=== PATIENT | male | born 1990 | race Caucasian/White ===

== ENCOUNTER 2025-04-01 08:50 | Inpatient (IN) | payer MEDICAID ==
[~2025-04-01] VITALS: Ht 172.7 cm; Wt 64.2 kg
--- NOTE | 2025-04-01 09:46 | ELECTROCARDIOGRAPH REPORT ---
[facility] Test Date: 2025-04-01 Test Time: 09:44:18 Pat Name: JORGE A DELACRUZ Department: [facility]- Patient ID: [facility]-[id number] Room: Gender: M Ehs Specialist: : 1990 Requested By: SHARA NAVA Order Number: [id number] Reading MD: Measurements Intervals [place] Rate: 114 P: 72 MD: 128 QRS: 80 QRSD: 75 T: -9 QT: 321 QTc: 443 Interpretive Statements Sinus tachycardia Borderline T wave abnormalities Please click the below link to view image of tracing.
--- NOTE | 2025-04-01 09:48 | Physician Documentation ---
History of Present Illness ~ Chief Complaint: ETOH Withdrawl Stated Complaint: ALCOHOL WITHDRAWAL Time Seen by MD: 09:19 OK to notify your PCP?: Yes Source: patient Mode of Arrival: POV Exam Limitations: no limitations HPI 34-year-old male with chief complaint nausea, vomiting and shakiness which he states are all due to alcohol withdrawal which started yesterday. His last drink of alcohol was yesterday in the middle of the day. He states he had been drinking heavily for the past eight days since the 24 of March. He does have a history of alcoholism but had been sober for quite some time prior to this. He does have a history of alcohol withdrawal seizures. He denies headache, abdominal pain, diarrhea, blood in vomit, hallucinations, delirium. Medication Reconciliation Allergies: Coded Allergies: No Known Allergies (Unverified , 04/01/25) Past Medical History Past Medical History: No Pertinent History Review of Systems All Other Systems at this time: Reviewed and Negative Physical Exam Vital Signs: RN Vital Signs have been reviewed: Yes, Temperature: 98.5, Source: Oral, Heart Rate: 121, Respiratory Rate: 18, BP: 147/105, Pulse Oximetry: 97, Weight: 63.000 Oxygen Flow Rate: 0 Physical Exam GENERAL: Alert, MILD DISTRESS HOLDING EMESIS BAG. TREMULOUS. HEENT: NCAT, EOMI, PERRL, normal oropharynx, DRY oral mucosa. NECK: Supple, trachea midline. CARDIAC: Regular rhythm, ELEVATED RATE, no murmurs, rubs, or gallops. PV: Equal distal pulses. No lower extremity edema, cap refill less than 2 seconds. RESPIRATORY: Equal breath sounds, clear to auscultation bilaterally, no respiratory distress. GASTROINTESTINAL: Non distended, soft, nontender, No guarding or rebound. MUSCULOSKELETAL: Normal range of motion, nontender, no swelling. NEUROLOGICAL: Awake, alert, and oriented x 3. SKIN: Warm/dry, no pallor, no rash. PSYCH: Alert and appropriate. APPEARS ANXIOUS. Progress Progress Note CIWA SCORE INITIALLY: 15 (10:00) CIWA SCORE: 11 (11:00) CIWA SCORE REASSESSED: 15 (1207) Results/Orders Reviewed/noted all lab results: Yes Results/Orders Orders - SHARA NAVA Hospitalist (04/01/25 12:05) Completed Orders - SHARA NAVA Stat Ekg (04/01/25 09:19) Normal Saline 1000ml (0.9% Sodium Chlori (04/01/25 09:20) Ondansetron Inj. (Zofran 4mg/2ml Vial) (04/01/25 09:20) Lorazepam Inj (Ativan Inj) (04/01/25 09:20) Diazepam Inj (Valium Inj) (04/01/25 10:05) Cbc/Diff (04/01/25 10:13) CMP (04/01/25 10:42) Lipase (04/01/25 10:42) Medications Received in ER Medications (Trade) Dose Ordered Sig/Emil Route PRN Reason Start Time Stop Time Status Last Admin Dose Admin (0.9% sodium chloride (NS) 1000ml IV soln) 1,000 ml ONCE ONCE IVB 04/01/25 09:20 04/01/25 09:21 DC 04/01/25 10:18 1,000 ML (Zofran 4mg/2ml vial) 8 mg ONCE ONCE IV 04/01/25 09:20 04/01/25 09:21 DC 04/01/25 10:17 8 MG (Valium inj) 5 mg ONCE ONCE IV 04/01/25 10:05 04/01/25 10:09 DC 04/01/25 10:22 5 MG Vital Signs 04/01/25 04/01/25 04/01/25 09:04 09:20 10:16 Temp 98.5 98.5 Pulse 121 102 Resp 18 18 13 B/P (MAP) 147/105 134/108 (117) Pulse Ox 97 98 O2 Flow Rate 0 0 Laboratory Tests Test 04/01/25 09:45 04/01/25 10:15 04/01/25 10:49 CBC Comment Chemistry Comments White Blood Count 8.1 Red Blood Count 4.49 L Hemoglobin 14.1 Hematocrit 41.8 L Mean Corpuscular Volume 93.1 Mean Corpuscular Hemoglobin 31.4 H Mean Corpuscular Hemoglobin Concent 33.7 Red Cell Distribution Width 16.2 H Platelet Count 335 Mean Platelet Volume 8.4 Neutrophils (%) (Auto) 83.9 H Lymphocytes (%) (Auto) 10.6 L Monocytes (%) (Auto) 4.8 Eosinophils (%) (Auto) 0 Basophils (%) (Auto) 0.7 Neutrophils # (Auto) 6.8 Lymphocytes # (Auto) 0.9 L Monocytes # (Auto) 0.4 Eosinophils # (Auto) 0.0 Basophils # (Auto) 0.1 Sodium Level 140 Potassium Level 3.7 Chloride Level 100 Carbon Dioxide Level 27.2 Anion Gap 13 Blood Urea Nitrogen 6 L Creatinine 0.92 Estimated GFR/1.73 m2 > 90 BUN/Creatinine Ratio 6.5 L Glucose Level 158 H Calcium Level 7.8 L Total Bilirubin 0.8 Aspartate Amino Transf (AST/SGOT) 210 H Alanine Aminotransferase (ALT/SGPT) 112 H Alkaline Phosphatase 89 Total Protein 7.9 Albumin 3.3 L Globulin 4.6 H Albumin/Globulin Ratio 0.7 L Lipase 20 Medical Decision Making Differential Dx:Considerations: Include: Alcohol withdrawl synd., Delerium tremens, Hallucinosis, Seizures, Anticholinergic poisoning, CVA, Dehydration, Depression, Drug induced psychosis, Electolyte imbalance, Encephalitis, Encephalopathy, Hepatitis, Hyperthermia, Intoxication-alcohol, Intoxication- other drug, Medical noncompliance, Personality disorder, Schizophrenia, Seizure disorder, Substance abuse disorder, Seizure disorder, Thiamine deficiency, Thyrotoxicosis, Other Additional Comment DUE TO ELEVATED CIWA SCORE RECOMMENDATION IS ADMISSION Departure Time of Disposition: 12:07 Admitted to Inpatient Unit: to hospitalist Impression: Primary Impression: Alcohol withdrawal syndrome Qualified Codes: F10.930 - Alcohol use, unspecified with withdrawal, uncomplicated Condition: Fair Referrals: NO PRIMARY CARE PROVIDER (PCP) Education Educated: Patient Educated regarding: diagnosis, treatment, need for follow up Signature Scribe Signature: X Attestation: SHARA CARLSON Apr 01, 2025 09:48
[2025-04-01] MEDS: ondansetron/PF 4mg/2ml inj IV ONE (10:17)
[2025-04-01] MEDS: normal saline 1000ML IV soln IVB ONE (10:18)
[2025-04-01] MEDS: diazepam inj 5 MG/ML inj. IV ONE ×3 (10:22→14:47)
[2025-04-01 10:36] LABS: MEAN PLATELET VOLUME 8.4 FL (7.4-10.4); RED CELL DISTRIBUTION WIDTH 16.2 % (11.5-14.5)
[2025-04-01 11:09] LABS: CREATININE 0.92 MG/DL (0.60-1.10); TOTAL CARBON DIOXIDE 27.2 MMOL/L (24-32); eCRCL 101 ML/MIN; eGFR > 90 ML/MIN
[2025-04-01 13:01] LABS: URINE AMPHETAMINE SCREEN NEGATIVE (Neg); URINE BARBITUATE SCREEN NEGATIVE (Neg); URINE BENZODIAZEPINES SCREEN NEGATIVE (Neg); URINE CANNABINOID SCREEN NEGATIVE (Neg); URINE COCAINE SCREEN NEGATIVE (Neg); URINE METHADONE SCREEN NEGATIVE (Neg); URINE OPIATE SCREEN NEGATIVE (Neg); URINE PHENCYCLIDINE SCREEN NEGATIVE (Neg)
[2025-04-01] MEDS ORDERED: NO HOME MEDS (13:39)
[2025-04-01 14:00] VITALS: BP 145/111; PULSE 102; RESP 18; TEMP 98.4; O2SAT 98
[2025-04-01] MEDS: metoclopramide 5 mg/ml inj IV ONE (14:22)
[2025-04-01] MEDS: normal saline 1000ml 1,000 ML IV SCH (14:30)
[2025-04-01] MEDS ORDERED: magnesium sulf-water 4G/100mL 100 ML IV PRN (14:30)
[2025-04-01] MEDS ORDERED: magnesium sulf-water 2g/50mL 50 ML IV PRN (14:30)
[2025-04-01] MEDS ORDERED: magnesium Cl slow-release 64mg tablet PO PRN (14:30)
[2025-04-01] MEDS ORDERED: potassium Cl 20 mEq SR tablet PO PRN (14:30)
--- NOTE | 2025-04-01 14:31 | HISTORY AND PHYSICAL-Residence ---
History & Physical Providers to CC Resident Creating Document: RHONDA MCKNIGHT RES ~ History of Present Illness Primary Medical Doctor: NONE Reason for Admit\\Complaint: ETHO withdrawal History of Present Illness The patient is a 34-year-old young male with a history of heavy alcohol use disorder, alcohol-induced pancreatitis, and prior alcohol withdrawal seizures. He presents with symptom of acute alcohol withdrawal, including nausea, vomiting, tremors, and generalized shakiness that began yesterday. He reports that his last alcoholic drink was yesterday around mid day (3 bottle of jacky). He had been drinking heavily on a daily basis for the past eight days, relapsing on March 24 after a period of sobriety. He consumes "a few" bottles of wine and "quite a bit" of Vodka on daily basis. He denies experiencing any seizures or hallucination during this current episode. Patient is not on any home medication and has not recently sought medical or rehab treatment for his alcohol use. 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 Consumes heavy alcohol for the past eight days. Denies recreational drugs or smoking. ROS All Other Systems: Reviewed and Negative ROS As stated above in the HPI, otherwise all systems are reviewed and negative. Exam Vitals: Vital Signs Date Time Temp Pulse Resp B/P (MAP) Pulse Ox O2 Delivery O2 Flow Rate FiO2 04/01/25 12:41 98.5 95 12 143/97 (112) 97 0 General: Awake and Alert, anxious and agitated HEENT: Conjunctiva pink, Sclera clear, Mucus Membranes moist. Neck: Supple without masses and tenderness. Resp: Unlabored. Lungs clear to auscultation bilaterally. Heart: Regular Rate and rhythm, normal S1 and S2 without murmur, rub or gallop. Abdomen: Soft and non tender no organomegaly Extremities: Bilateral hand tremors Skin: Warm and Dry. Diagnostic Data Last Recorded Lab Results: 04/01/25 1015 04/01/25 1049 Advance Care Planning Advanced Care plannin - 30 Minutes Additional Plan Assessment and plan The patient is a 34-year-old young male with a history of heavy alcohol use disorder, alcohol induced pancreatitis, and prior alcohol withdrawal seizures. He presents with symptom of acute alcohol withdrawal, including nausea, vomiting, tremors, and generalized shakiness that began yesterday. He reports that his last alcoholic drink was yesterday around mid day. He had been drinking heavily on a daily basis for the past eight days, relapsing on March 24 after a period of sobriety. Severe BALAJI (Alcohol Withdrawal Symptoms) History of alcohol-induced pancreatitis, and alcohol induced seizure Autonomic symptoms (e.g., palpitations, sweating, tachycardia, elevated blood pressure) Anxiety, agitation, restlessness, Tremor, hyperreflexia, Anorexia, nausea, vomiting CIWA-Ar Score: 27 Admitted to telemetry Symptom-triggered regimen for BALAJI - Ativan 2 mg IV as needed for CIWA-Ar >10 (parameters included in the order). Fixed-schedule regimen for BALAJI: Valium 10 mg every 6 hours scheduled Clonidine 0.1 mg p.o. every 4 hours as needed Transition to P.O: We will transition to Chlordiazepoxide 25 mg PO every 6 hours on day 1, every 8 hours on day 2, every12 hours on day 3, every 24 hours (at night) on days 4 and 5, then discontinue Continue thiamine and folic acid IV Nausea/vomiting; Zofran 4 mg IV every 6 hours needed IV hydration; NS 100 mL/hours services manager consulted Elevated transaminases AST/ALT 210/112. Bilirubin is 0.8 Likely alcohol-induced acute hepatic injury Follow coagulation studies including INR Monitor LFTs History of pancreatitis Lipase 20, no symptoms of acute pancreatitis We will monitor lipase Code status: Full code DVT prophylaxis: Bridgerx Rhonda Mcknight Internal Medicine Resident Date of Service: Apr 01, 2025 Billing Provider: TABITHA WATSON MD Common Visit Codes: [id number] INP/OBS CARE (HIGH) Secondary Visit Codes: [id number] CARE PLAN 30 MINUTES RHONDA MCKNIGHT, RES Apr 01, 2025 14:31 TABITHA WATSON MD Apr 02, 2025 20:43
[2025-04-01 15:42] LABS: APTT 24 SECONDS (22-32); INR 1.2 INR
[2025-04-01 18:00] VITALS: BP 115/85; PULSE 95; RESP 16; TEMP 98.3; O2SAT 97
[2025-04-01] MEDS: diazepam inj 5 MG/ML inj. IV SCH (19:11)
[2025-04-01] MEDS: enoxaparin 40mg/0.4ml syringe SQ SCH (19:19)
[2025-04-01] MEDS: K and/or MAG REPLACEMENT MC SCH (19:22)
[2025-04-01] MEDS: thiamine 100mg/ml 2ml inj. IV SCH (20:03)
[2025-04-01 22:00] VITALS: BP 112/81; PULSE 104; RESP 17; TEMP 97.5; O2SAT 97
[2025-04-01] MEDS: mag hydrox/Alum hydrox/simeth 30ml oral suspension PO ONE (22:03)
[2025-04-01] MEDS: haloperidol lactate 5mg/ml inj IM PRN (22:04)
[2025-04-02 06:08] LABS: MEAN PLATELET VOLUME 9.1 FL (7.4-10.4); RED CELL DISTRIBUTION WIDTH 16.5 % (11.5-14.5)
[2025-04-02 06:17] LABS: CREATININE 0.79 MG/DL (0.60-1.10); PHOSPHORUS 3.2 MG/DL (2.3-4.5); TOTAL CARBON DIOXIDE 30.2 MMOL/L (24-32); eCRCL 120 ML/MIN; eGFR > 90 ML/MIN
[2025-04-02 06:47] VITALS: BP 119/85; PULSE 68; RESP 16; TEMP 98; O2SAT 99
[2025-04-02 08:00] VITALS: RESP 16; O2SAT 99
[2025-04-02] MEDS: folic acid 1mg/0.2ml inj IV SCH (09:05)
[2025-04-02] MEDS: multivitamins, therapeutics tablet PO SCH (09:05)
[2025-04-02] MEDS: potassium Cl 20 mEq SR tablet PO PRN (09:05)
[2025-04-02 11:00] VITALS: BP 130/93; PULSE 79; RESP 20; TEMP 97.8; O2SAT 99
--- NOTE | 2025-04-02 13:46 | PROGRESS NOTE- Residence ---
Progress Note - Resident Providers to CC Resident Creating Document: GEORGIANA HAIR, RES ~ Antibiotic Timeout Antibiotic Ordered?: No Subjective Patient reports that he is doing well compared to yesterday. Continues to have some nausea, abdominal pain and tremors but improved. No episodes of vomiting since admission. Able to tolerate diet well Objective Vital Signs Date Time Temp Pulse Resp B/P (MAP) Pulse Ox O2 Delivery O2 Flow Rate FiO2 04/02/25 08:00 16 99 Room Air 04/02/25 06:47 98.0 68 119/85 (96) 04/01/25 12:41 0 Result Diagram: 04/02/2543204/02/25432 General: Awake and Alert, anxious patient HEENT: Conjunctiva pink, Sclera clear, Mucus Membranes moist. Neck: Supple without masses and tenderness. Resp: Unlabored. Lungs clear to auscultation bilaterally. Heart: Regular Rate and rhythm, normal S1 and S2 without murmur, rub or gallop. Abdomen: Soft and non tender no organomegaly Extremities: Bilateral hand tremors Skin: Warm and Dry. Coagulation Studies Laboratory Tests Test 04/01/25 15:13 Prothrombin Time 11.9 SECONDS (9.0-12.0) INR International Normalized Ratio 1.2 INR Activated Partial Thromboplast Time 24 SECONDS (22-32) Coagulation Comments Plan Plan Assessment and plan The patient is a 34-year-old young male with a history of heavy alcohol use disorder, alcohol induced pancreatitis, and prior alcohol withdrawal seizures. He presents with symptom of acute alcohol withdrawal, including nausea, vomiting, tremors, and generalized shakiness that began yesterday. He reports that his last alcoholic drink was yesterday around mid day. He had been drinking heavily on a daily basis for the past eight days, relapsing on March 24 after a period of sobriety. Severe BALAJI (Alcohol Withdrawal Symptoms) History of alcohol-induced pancreatitis, and alcohol induced seizure Autonomic symptoms (e.g., palpitations, sweating, tachycardia, elevated blood pressure) Anxiety, agitation, restlessness, Tremor, hyperreflexia, Anorexia, nausea, vomiting CIWA-Ar Score: 27 Admitted to telemetry Symptom-triggered regimen for BALAJI - Ativan 2 mg IV as needed for CIWA-Ar >10 (parameters included in the order). Fixed-schedule regimen for BALAJI: Valium 10 mg every 6 hours scheduled Clonidine 0.1 mg p.o. every 4 hours as needed Transition to P.O: We will transition to Chlordiazepoxide 25 mg PO every 6 hours on day 1, every 8 hours on day 2, every12 hours on day 3, every 24 hours (at night) on days 4 and 5, then discontinue Continue thiamine and folic acid IV Nausea/vomiting; Zofran 4 mg IV every 6 hours needed IV hydration; NS 100 mL/hours statement services representative consulted 04/02/2025 Continues to have tremors, nausea improved Tachycardic improved. Continuing with the IV fluids NS@ 100 mL/hour Ativan and Haldol p.r.n. Diazepam 5 mg q.6 IV scheduled Elevated transaminases AST/ALT 210/112. Bilirubin is 0.8 Likely alcohol-induced acute hepatic injury Follow coagulation studies including INR Monitor LFTs 04/02/2025-AST and ALT improved History of pancreatitis Lipase 20, no symptoms of acute pancreatitis We will monitor lipase Code status: Full code DVT prophylaxis: Lovenox GI prophylaxis: Pantoprazole Diet: Regular diet Georgiana hair M.D PGY2 Date of Service: Apr 02, 2025 Billing Provider: TABITHA WATSON MD Common Visit Codes: [id number] INP/OBS CARE(HIGH) GEORGIANA HAIR, RES Apr 02, 2025 13:46 TABITHA WATSON MD Apr 02, 2025 20:43
[2025-04-02 18:00] VITALS: BP 115/84; PULSE 65; RESP 18; TEMP 97.9; O2SAT 99
[2025-04-02] MEDS: mag hydrox/Alum hydrox/simeth 30ml oral suspension PO ONE (19:13)
[2025-04-02 22:00] VITALS: BP 135/93; PULSE 73; RESP 18; TEMP 97.7; O2SAT 98
[2025-04-03] MEDS ORDERED: AMLO5TAB5 PO (05:12)
[2025-04-03 06:00] VITALS: BP 136/102; PULSE 89; RESP 18; TEMP 97.7; O2SAT 96
[2025-04-03 06:08] LABS: MEAN PLATELET VOLUME 9.3 FL (7.4-10.4); RED CELL DISTRIBUTION WIDTH 15.8 % (11.5-14.5)
[2025-04-03 06:47] LABS: CREATININE 0.69 MG/DL (0.60-1.10); PHOSPHORUS 3.5 MG/DL (2.3-4.5); TOTAL CARBON DIOXIDE 26.7 MMOL/L (24-32); eCRCL 137 ML/MIN; eGFR > 90 ML/MIN
--- NOTE | 2025-04-03 07:45 | RADIOLOGY REPORT ---
INDICATION: Elevated liver enzymes TECHNIQUE: Multiple real-time sonographic images of the abdomen were obtained. COMPARISON: None FINDINGS: The liver is increased in echogenicity. The liver measures 17.7 cm. No intrahepatic biliar y ductal dilatation is noted. The gallbladder wall measures 0.2 cm and is unremarkable. No gallstones or sludge is seen. The com mon duct measures 0.2 cm and is unremarkable. No pericholecystic fluid is noted. Negative sonographi c braden's sign. The right kidney measures 11.1 cm. No hydronephrosis. The pancreas is not well visualized due to obscuration from bowel gas. The visualized portions of the IVC and aorta are grossly unremarkable. IMPRESSION: 1. Hepatic steatosis and hepatomegaly. 2. No gallstones or acute cholecystitis.
[2025-04-03] MEDS: metoclopramide 5 mg/ml inj IV PRN (09:35)
[2025-04-03 10:50] VITALS: BP 134/104; PULSE 108; RESP 16; TEMP 98.6; O2SAT 96
[2025-04-03] MEDS ORDERED: diazepam inj 5 MG/ML inj. IV PRN (11:15)
[2025-04-03] MEDS: ringers solution, lacted 1,000 ML IV SCH (12:31)
[2025-04-03] MEDS: potassium Cl 40MEQ/1/2NS 520ml 520 ML IV PRN (12:32)
--- NOTE | 2025-04-03 15:02 | PROGRESS NOTE- Residence ---
Progress Note - Resident Providers to CC Resident Creating Document: RHONDA MCKNIGHT RES ~ Antibiotic Timeout Antibiotic Ordered?: No Subjective Patient reports that he is doing well compared to yesterday. Patient continued to have abdominal pain last night, followed by abdominal ultrasound, which revealed hepatic steatosis and hepatomegaly. This morning, he is still continue to have abdominal pain, followed by an episode of vomiting. Lipase. Lipase check this morning, elevated, consistent with the ongoing acute pancreatitis. Bilirubin and LFTs are trending down. Objective Vital Signs Date Time Temp Pulse Resp B/P (MAP) Pulse Ox O2 Delivery O2 Flow Rate FiO2 04/03/25 14:06 16 04/03/25 10:50 98.6 108 134/104 (114) 96 Room Air 04/01/25 12:41 0 General: Awake and Alert, anxious patient HEENT: Conjunctiva pink, Sclera clear, Mucus Membranes moist. Neck: Supple without masses and tenderness. Resp: Unlabored. Lungs clear to auscultation bilaterally. Heart: Regular Rate and rhythm, normal S1 and S2 without murmur, rub or gallop. Abdomen: Soft and non tender no organomegaly Extremities: Mild Bilateral hand tremors Skin: Warm and Dry. Result Diagram: 04/03/25 0443 04/03/25 0443 Coagulation Studies Laboratory Tests Test 04/01/25 15:13 Prothrombin Time 11.9 SECONDS (9.0-12.0) INR International Normalized Ratio 1.2 INR Activated Partial Thromboplast Time 24 SECONDS (22-32) Coagulation Comments Advance Care Planning Advanced Care plannin - 30 Minutes Assessment Assessment Assessment and plan The patient is a 34-year-old young male with a history of heavy alcohol use disorder, alcohol induced pancreatitis, and prior alcohol withdrawal seizures. He presents with symptom of acute alcohol withdrawal, including nausea, vomiting, tremors, and generalized shakiness that began yesterday. He reports that his last alcoholic drink was yesterday around mid day. He had been drinking heavily on a daily basis for the past eight days, relapsing on March 24 after a period of sobriety. Plan Plan Severe BALAJI (Alcohol Withdrawal Symptoms) History of alcohol-induced pancreatitis, and alcohol induced seizure Autonomic symptoms (e.g., palpitations, sweating, tachycardia, elevated blood pressure) Anxiety, agitation, restlessness, Tremor, hyperreflexia, Anorexia, nausea, vomiting CIWA-Ar Score: 27 Admitted to telemetry Symptom-triggered regimen for BALAJI - Ativan 2 mg IV as needed for CIWA-Ar >10 (parameters included in the order). Fixed-schedule regimen for BALAJI: Valium 10 mg every 6 hours scheduled Clonidine 0.1 mg p.o. every 4 hours as needed Transition to P.O: We will transition to Chlordiazepoxide 25 mg PO every 6 hours on day 1, every 8 hours on day 2, every12 hours on day 3, every 24 hours (at night) on days 4 and 5, then discontinue Continue thiamine and folic acid IV Nausea/vomiting; Zofran 4 mg IV every 6 hours needed IV hydration; NS 100 mL/hours support services rep consulted Acute alcohol-induced pancreatitis History of alcohol-induced pancreatitis Continued to have N/V, and epigastric pain. Unable to tolerate oral intake Ultrasound hepatic steatosis/hepatomegaly. Lipase elevated; consistent with acute pancreatitis. IV hydration with a LR and then 150 mL/hours, and pain management Nausea/vomiting: Reglan 10 mg every 6 hours as scheduled LFTs trended down 04/02/2025 Continues to have tremors, nausea improved Tachycardic improved. Continuing with the IV fluids NS@ 100 mL/hour Ativan and Haldol p.r.n. Diazepam 5 mg q.6 IV scheduled April 03, 2025: Valium discontinued, Librium initiated Continue to have N/V and epigastric pain Elevated lipase, acute alcoholic pancreatitis; continue IV hydration, and pain management. Reglan for N/V LFTs trended down, we will monitor LFTs Potassium 3.2, on replacement protocol Elevated transaminases ; trending down Hepatomegaly/hepatic steatosis Likely alcohol-induced acute hepatic injury Follow coagulation studies including INR Monitor LFTs Code status: Full code DVT prophylaxis: Lovenox GI prophylaxis: Pantoprazole Diet: Regular diet Rhonda Mcknight Internal Medicine Resident Date of Service: Apr 03, 2025 Billing Provider: TABITHA WATSON MD Common Visit Codes: [id number] INP/OBS CARE(HIGH) RHONDA MCKNIGHT, ELLI Apr 03, 2025 15:02 TABITHA WATSON MD Apr 04, 2025 08:20
[2025-04-03 15:51] LABS: MEAN PLATELET VOLUME 8.9 FL (7.4-10.4); RED CELL DISTRIBUTION WIDTH 15.6 % (11.5-14.5)
[2025-04-03] MEDS: metoclopramide 5 mg/ml inj IV SCH (16:00)
[2025-04-03 18:00] VITALS: BP 147/102; PULSE 100; RESP 16; TEMP 98.2; O2SAT 97
[2025-04-03 22:00] VITALS: BP 142/101; PULSE 85; RESP 18; TEMP 98.5; O2SAT 99
[2025-04-04 04:58] LABS: MEAN PLATELET VOLUME 9.5 FL (7.4-10.4); RED CELL DISTRIBUTION WIDTH 15.8 % (11.5-14.5)
[2025-04-04 05:23] LABS: CREATININE 0.58 MG/DL (0.60-1.10); PHOSPHORUS 3.3 MG/DL (2.3-4.5); TOTAL CARBON DIOXIDE 26.3 MMOL/L (24-32); eCRCL 163 ML/MIN; eGFR > 90 ML/MIN
[2025-04-04 06:00] VITALS: BP 143/99; PULSE 91; RESP 18; TEMP 98; O2SAT 97
[2025-04-04 08:10] VITALS: RESP 18
[2025-04-04] MEDS: ondansetron/PF 4mg/2ml inj IV PRN (08:10)
[2025-04-04 10:00] VITALS: BP 147/100; PULSE 89; RESP 16; TEMP 98.5; O2SAT 97
--- NOTE | 2025-04-04 12:56 | PROGRESS NOTE- Residence ---
Progress Note - Resident Providers to CC Resident Creating Document: BRAD MCKNIGHT RES ~ Antibiotic Timeout Antibiotic Ordered?: No Subjective patient was seen and examined at bedside, he still reports intractable nausea, vomitting and also reports epigastric pain. Objective Vital Signs Date Time Temp Pulse Resp B/P (MAP) Pulse Ox O2 Delivery O2 Flow Rate FiO2 04/04/25 11:36 18 04/04/25 06:00 98.0 91 143/99 (114) 97 Room Air 04/04/25 03:49 0 21 General: Awake and Alert, no acute distress. HEENT: Conjunctiva pink, Sclera clear, Mucus Membranes moist. Neck: Supple without masses and tenderness. Resp: Unlabored. Lungs clear to auscultation bilaterally. Heart: Regular Rate and rhythm, normal S1 and S2 without murmur, rub or gallop. Abdomen: Soft and mild to moderate epigastric tenderness. Extremities: No cyanosis,clubbing or edema. Skin: Warm and Dry. Result Diagram: 04/04/25 0423 04/04/25 0423 Coagulation Studies Laboratory Tests Test 04/01/25 15:13 Prothrombin Time 11.9 SECONDS (9.0-12.0) INR International Normalized Ratio 1.2 INR Activated Partial Thromboplast Time 24 SECONDS (22-32) Coagulation Comments Advance Care Planning Advanced Care plannin - 30 Minutes Assessment Assessment Assessment and plan The patient is a 34-year-old young male with a history of heavy alcohol use disorder, alcohol induced pancreatitis, and prior alcohol withdrawal seizures. He presents with symptom of acute alcohol withdrawal, including nausea, vomiting, tremors, and generalized shakiness that began yesterday. He reports that his last alcoholic drink was yesterday around mid day. He had been drinking heavily on a daily basis for the past eight days, relapsing on March 24 after a period of sobriety. Plan Plan Severe BALAJI (Alcohol Withdrawal Symptoms) History of alcohol-induced pancreatitis, and alcohol induced seizure Autonomic symptoms (e.g., palpitations, sweating, tachycardia, elevated blood pressure) Anxiety, agitation, restlessness, Tremor, hyperreflexia, Anorexia, nausea, vomiting CIWA-Ar Score: 27 Admitted to telemetry Symptom-triggered regimen for BALAJI - Ativan 2 mg IV as needed for CIWA-Ar >10 (parameters included in the order). Fixed-schedule regimen for BALAJI: Valium 10 mg every 6 hours scheduled Clonidine 0.1 mg p.o. every 4 hours as needed Transition to P.O: We will transition to Chlordiazepoxide 25 mg PO every 6 hours on day 1, every 8 hours on day 2, every12 hours on day 3, every 24 hours (at night) on days 4 and 5, then discontinue Continue thiamine and folic acid IV Nausea/vomiting; Zofran 4 mg IV every 6 hours needed IV hydration; NS 100 mL/hours technical services coordinator consulted Acute alcohol-induced pancreatitis History of alcohol-induced pancreatitis Continued to have N/V, and epigastric pain. Unable to tolerate oral intake Ultrasound hepatic steatosis/hepatomegaly. Lipase elevated; consistent with acute pancreatitis. IV hydration with a LR and then 150 mL/hours, and pain management Nausea/vomiting: Reglan 10 mg every 6 hours as scheduled LFTs trended down 04/02/2025 Continues to have tremors, nausea improved Tachycardic improved. Continuing with the IV fluids NS@ 100 mL/hour Ativan and Haldol p.r.n. Diazepam 5 mg q.6 IV scheduled April 03, 2025: Valium discontinued, Librium initiated Continue to have N/V and epigastric pain Elevated lipase, acute alcoholic pancreatitis; continue IV hydration, and pain management. Reglan for N/V LFTs trended down, we will monitor LFTs Potassium 3.2, on replacement protocol April 04, 2025 n/v he is on ondasetron as needed, metocloproamide 10 mg iv every 6 hr as schedule and Phenergan added. I have also started dilauded 1 mg every 6 hrs as needed. Lfts are trending down, continue to monitor. Elevated transaminases ; trending down Hepatomegaly/hepatic steatosis Likely alcohol-induced acute hepatic injury Follow coagulation studies including INR Monitor LFTs Code status: Full code DVT prophylaxis: Lovenox GI prophylaxis: Pantoprazole Diet: Regular diet Brad Mcknight Internal Medicine Resident Date of Service: Apr 04, 2025 Billing Provider: TABITHA WATSON MD Common Visit Codes: [id number] INP/OBS CARE(HIGH) BRAD MCKNIGHT RES Apr 04, 2025 12:55 TABITHA WATSON MD Apr 05, 2025 19:13
[2025-04-04 18:30] VITALS: BP 146/105; PULSE 78; RESP 16; TEMP 98.3; O2SAT 99
[2025-04-04] MEDS: HYDROcodone/acetaminophen 5mg/325mg tablet PO PRN (19:57)
[2025-04-04 22:00] VITALS: BP 125/90; PULSE 77; RESP 18; TEMP 97.4; O2SAT 98
[2025-04-05 04:56] LABS: MEAN PLATELET VOLUME 9.0 FL (7.4-10.4); RED CELL DISTRIBUTION WIDTH 15.9 % (11.5-14.5)
[2025-04-05 05:17] LABS: CREATININE 0.70 MG/DL (0.60-1.10); PHOSPHORUS 3.1 MG/DL (2.3-4.5); TOTAL CARBON DIOXIDE 29.1 MMOL/L (24-32); eCRCL 135 ML/MIN; eGFR > 90 ML/MIN
[2025-04-05 06:00] VITALS: BP 142/94; PULSE 69; RESP 16; TEMP 98.6; O2SAT 98
[2025-04-05] MEDS ORDERED: magnesium sulf-water 2g/50mL 50 ML IV PRN (06:05)
[2025-04-05] MEDS ORDERED: potassium Cl 40MEQ/1/2NS 520ml 520 ML IV PRN (06:05)
[2025-04-05] MEDS ORDERED: magnesium sulf-water 4G/100mL 100 ML IV PRN (06:05)
[2025-04-05] MEDS ORDERED: magnesium Cl slow-release 64mg tablet PO PRN (06:05)
[2025-04-05] MEDS ORDERED: potassium Cl 20 mEq SR tablet PO PRN (06:05)
[2025-04-05] MEDS ORDERED: K and/or MAG REPLACEMENT MC SCH (08:00)
[2025-04-05] MEDS: potassium Cl 20 mEq SR tablet PO PRN (08:02)
[2025-04-05] MEDS: HYDROcodone/acetaminophen 10/325mg tab PO PRN (09:39)
[2025-04-05 10:00] VITALS: BP 143/104; PULSE 84; RESP 16; TEMP 97.9; O2SAT 97
--- NOTE | 2025-04-05 12:26 | PROGRESS NOTE- Residence ---
Progress Note - Resident Providers to CC Resident Creating Document: BRAD MACIEL RES ~ Antibiotic Timeout Antibiotic Ordered?: No Subjective patient was seen and examined at bedside. Nausea/vomiting controlled; diet advanced to full liquid. still reports mild abdominal pain, we will monitor his oral intake tolerance. Probable discharge tomorrow. Objective Vital Signs Date Time Temp Pulse Resp B/P (MAP) Pulse Ox O2 Delivery O2 Flow Rate FiO2 04/05/25 11:21 20 04/05/25 10:00 97.9 84 143/104 (117) 97 Room Air 04/04/25 03:49 0 21 General: Awake and Alert, no acute distress. HEENT: Conjunctiva pink, Sclera clear, Mucus Membranes moist. Neck: Supple without masses and tenderness. Resp: Unlabored. Lungs clear to auscultation bilaterally. Heart: Regular Rate and rhythm, normal S1 and S2 without murmur, rub or gallop. Abdomen: Soft and mild to moderate epigastric tenderness. Extremities: No cyanosis,clubbing or edema. Skin: Warm and Dry Result Diagram: 04/05/25 0432 04/05/25 0432 Coagulation Studies Laboratory Tests Test 04/01/25 15:13 Prothrombin Time 11.9 SECONDS (9.0-12.0) INR International Normalized Ratio 1.2 INR Activated Partial Thromboplast Time 24 SECONDS (22-32) Coagulation Comments Advance Care Planning Advanced Care plannin - 30 Minutes Assessment Assessment Assessment and plan The patient is a 34-year-old young male with a history of heavy alcohol use disorder, alcohol induced pancreatitis, and prior alcohol withdrawal seizures. He presents with symptom of acute alcohol withdrawal, including nausea, vomiting, tremors, and generalized shakiness that began yesterday. He reports that his last alcoholic drink was yesterday around mid day. He had been drinking heavily on a daily basis for the past eight days, relapsing on March 24 after a period of sobriety. Plan Plan Severe BALAJI (Alcohol Withdrawal Symptoms) History of alcohol-induced pancreatitis, and alcohol induced seizure Autonomic symptoms (e.g., palpitations, sweating, tachycardia, elevated blood pressure) Anxiety, agitation, restlessness, Tremor, hyperreflexia, Anorexia, nausea, vomiting CIWA-Ar Score: 27 Admitted to telemetry Symptom-triggered regimen for BALAJI - Ativan 2 mg IV as needed for CIWA-Ar >10 (parameters included in the order). Fixed-schedule regimen for BALAJI: Valium 10 mg every 6 hours scheduled Clonidine 0.1 mg p.o. every 4 hours as needed Transition to P.O: We will transition to Chlordiazepoxide 25 mg PO every 6 hours on day 1, every 8 hours on day 2, every12 hours on day 3, every 24 hours (at night) on days 4 and 5, then discontinue Continue thiamine and folic acid IV Nausea/vomiting; Zofran 4 mg IV every 6 hours needed IV hydration; NS 100 mL/hours child and family services worker consulted Acute alcohol-induced pancreatitis History of alcohol-induced pancreatitis Continued to have N/V, and epigastric pain. Unable to tolerate oral intake Ultrasound hepatic steatosis/hepatomegaly. Lipase elevated; consistent with acute pancreatitis. IV hydration with a LR and then 150 mL/hours, and pain management Nausea/vomiting: Reglan 10 mg every 6 hours as scheduled LFTs trended down 04/02/2025 Continues to have tremors, nausea improved Tachycardic improved. Continuing with the IV fluids NS@ 100 mL/hour Ativan and Haldol p.r.n. Diazepam 5 mg q.6 IV scheduled April 03, 2025: Valium discontinued, Librium initiated Continue to have N/V and epigastric pain Elevated lipase, acute alcoholic pancreatitis; continue IV hydration, and pain management. Reglan for N/V LFTs trended down, we will monitor LFTs Potassium 3.2, on replacement protocol April 04, 2025 n/v he is on ondasetron as needed, metocloproamide 10 mg iv every 6 hr as schedule and Phenergan added. I have also started dilauded 1 mg every 6 hrs as needed. Lfts are trending down, continue to monitor. April 05, 2025: Nausea/vomiting controlled with current regime including Reglan, and Phenergan Still reports mild abdominal pain, unclear diet. We will advance to full liquid Re-evaluate tomorrow for possible discharge Elevated transaminases ; trending down Hepatomegaly/hepatic steatosis Likely alcohol-induced acute hepatic injury Follow coagulation studies including INR Monitor LFTs Code status: Full code DVT prophylaxis: Lovenox GI prophylaxis: Pantoprazole Diet: Regular diet [facility] Resident Addendum still not tolerating food due to worsening pain, shakes better Date of Service: Apr 05, 2025 Billing Provider: TABITHA WATSON MD Common Visit Codes: 59103-[id number] INP/OBS CARE(HIGH) BRAD MACIEL, RES Apr 05, 2025 12:26 TABITHA WATSON MD Apr 05, 2025 19:14
[2025-04-05 18:00] VITALS: BP 148/105; PULSE 85; RESP 16; TEMP 97.7; O2SAT 97
[2025-04-05] MEDS: ringers solution, lacted 1,000 ML IV SCH (20:41)
[2025-04-05 22:00] VITALS: BP 130/92; PULSE 80; RESP 16; TEMP 97.8; O2SAT 98
[2025-04-06 04:53] LABS: MEAN PLATELET VOLUME 8.9 FL (7.4-10.4); RED CELL DISTRIBUTION WIDTH 16.1 % (11.5-14.5)
[2025-04-06 05:15] LABS: CREATININE 0.57 MG/DL (0.60-1.10); PHOSPHORUS 4.5 MG/DL (2.3-4.5); TOTAL CARBON DIOXIDE 32.0 MMOL/L (24-32); eCRCL 166 ML/MIN; eGFR > 90 ML/MIN
[2025-04-06 06:00] VITALS: BP 122/63; PULSE 67; RESP 13; TEMP 98.9; O2SAT 98
[2025-04-06] MEDS ORDERED: HYDR-3965 PO (08:51)
[2025-04-06 10:00] VITALS: BP 129/86; PULSE 81; RESP 18; TEMP 97.6; O2SAT 97
[2025-04-06] MEDS ORDERED: MULT-25 PO (11:55)
[2025-04-06 14:07] VITALS: RESP 16
--- NOTE | 2025-04-06 18:47 | DISCHARGE SUMMARY-Residence ---
Discharge Summary Providers to CC Resident Creating Document: BRAD MACIELELLI ~ Discharge Summary Admission Diagnosis: ETOH Withdrawal Hospital Course DATE OF ADMISSION: April 01, 2025 DATE OF DISCHARGE: April 06, 2025 Discharge Diagnosis\\Comment: Severe BALAJI (Alcohol Withdrawal Symptoms) - CIWA-Ar Score: 27 Acute alcohol-induced pancreatitis Hepatomegaly/hepatic steatosis with Elevated transaminases Operations\\Procedures: None Consultants: none Complications: None Condition on DC: Stable New Medications: Hydrocodone Bit/Acetaminophen 5/325 MG ([place] 5/325 MG) 5 Mg/325 Mg Tablet 1 TAB PO Q6H PRN for pain, #20 TAB Multivitamin with Folic Acid (Thera Tablet) 400 Mcg Tablet 1 EACH PO Q24H for 30 Days, #30 TAB Continued Medications: Amlodipine Besylate (Norvasc) 5 Mg Tablet 1 TAB PO DAILY for 30 Days, #30 TAB 0 Refills Discharge Summary: History of present illness The patient is a 34-year-old young male with a history of heavy alcohol use disorder, alcohol-induced pancreatitis, and prior alcohol withdrawal seizures. He presents with symptom of acute alcohol withdrawal, including nausea, vomiting, tremors, and generalized shakiness that began yesterday. He reports that his last alcoholic drink was yesterday around mid day (3 bottle of jacky). He had been drinking heavily on a daily basis for the past eight days, relapsing on March 24 after a period of sobriety. He consumes "a few" bottles of wine and "quite a bit" of Vodka on daily basis. He denies experiencing any seizures or hallucination during this current episode. Patient is not on any home medication and has not recently sought medical or rehab treatment for his alcohol use. Hospital course: The patient was admitted with the acute alcohol withdrawal symptoms. He also had acute alcohol-induced pancreatitis, with severe dehydration, nausea, and vomiting with severe epigastric pain. It was managed with the aggressive IV hydration, antiemetics, and pain control. Imaging revealed hepatomegaly with hepatic steatosis. Liver enzymes were initially elevated but trended down during the hospital course. The patient's symptoms improved with supportive care, he was discharged in stable condition with the appropriate follow up in counseling on alcohol cessation. Physical exam Vital Signs Date Time Temp Pulse Resp B/P (MAP) Pulse Ox O2 Delivery O2 Flow Rate FiO2 04/06/25 14:07 16 04/06/25 10:00 97.6 81 129/86 (100) 97 Room Air 04/04/25 03:49 0 21 General: Awake and Alert, no acute distress. HEENT: Conjunctiva pink, Sclera clear, Mucus Membranes moist. Neck: Supple without masses and tenderness. Resp: Unlabored. Lungs clear to auscultation bilaterally. Heart: Regular Rate and rhythm, normal S1 and S2 without murmur, rub or gallop. Abdomen: Soft and mild to moderate epigastric tenderness. Extremities: No cyanosis,clubbing or edema. Skin: Warm and Dry *Problems/Diagnosis: (1) Alcohol withdrawal syndrome Status: Acute Total Time Spent on D/C: > 30 Minutes Date of Service: Apr 06, 2025 Billing Provider: TABITHA WATSON MD Problem Qualifiers (1) Alcohol withdrawal syndrome: Complication of substance-induced condition: uncomplicated Qualified Codes: F10.930 - Alcohol use, unspecified with withdrawal, uncomplicated BRAD MACIEL, RES Apr 06, 2025 18:46
[2025-04-06] MEDS ORDERED: pantoprazole 40mg Tablet.DR PO SCH (20:00)
== END 2025-04-06 17:50 | disposition home or self-care (01) | DRG 282 ==
LOC: ER 08:52 → ED HOLD 12:28 → ORTHO 4S 13:55
PROVIDERS: ADMIT Internal Medicine; ATTEND Internal Medicine
DX: K85.20 Alcohol induced acute pancreatitis without necrosis or infection (principal); R16.0 Hepatomegaly, not elsewhere classified; E86.0 Dehydration; F10.230 Alcohol dependence with withdrawal, uncomplicated; F41.9 Anxiety disorder, unspecified; R74.01 Elevation of levels of liver transaminase levels; N28.89 Other specified disorders of kidney and ureter
CPT/HCPCS: 36415; 76700; 80053; 80305; 83690; 83735; 84100; 85025; 85610; 85730; 87081; 93005; 96374; 96375; 97116; 97161; 99285; A6258; G0378; J1171; J1630; J1650; J2060; J2270; J2405; J2470; J2765; J3360; J3411; J3480; J3490; J7030; J7120